=== PATIENT | female | born 1960 ===

== ENCOUNTER 2017-11-10 14:28 | Outpatient (CLI) | payer OTHER ==
[~2017-11-10] VITALS: Ht 149.9 cm; Wt 93.0 kg
== END 2017-11-10 14:40 | disposition home or self-care (01) ==
LOC: OFIC 805 14:28
DX: H60.8X3 Other otitis externa, bilateral (principal); J30.89 Other allergic rhinitis; H61.21 Impacted cerumen, right ear

== ENCOUNTER 2017-11-17 11:09 | Outpatient (CLI) | payer OTHER ==
[~2017-11-17] VITALS: Ht 121.9 cm; Wt 93.0 kg
== END 2017-11-17 11:20 | disposition home or self-care (01) ==
LOC: OFIC 805 11:09
DX: H60.8X3 Other otitis externa, bilateral (principal); H61.21 Impacted cerumen, right ear; J30.89 Other allergic rhinitis